=== PATIENT | female | born 1965 | race Caucasian/White ===

== ENCOUNTER 2016-12-08 23:08 | Emergency (ER) | payer OTHER ==
--- NOTE | 2016-12-09 00:16 | ED CLINICAL REPORT ---
Clinical Report - Physicians/Mid Levels [facility] [address] [place] [address] 12/08/2016 23:08 [id number] Time Seen: 23:24. Arrived- By private vehicle. Historian- patient. HISTORY OF PRESENT ILLNESS Chief Complaint: Injury to the left foot and left ankle. The injury happened just prior to arrival. The patient sustained a twisting injury. Occurred at home. Patient is experiencing moderate pain. No other injury. REVIEW OF SYSTEMS The patient complains of pain on weight bearing. She has had swelling. No tingling, weakness, numbness, suspected foreign body or skin laceration. All systems otherwise negative, except as recorded above. PAST HISTORY Problems: Allergic Reaction. Allergic Rhinitis. Immunizations. LNMP - Last Normal Menstrual Period. Additional Surgeries: Yehuda Fundoplasty. Sinus Surgery. Tubal Ligation. Medications: None. Allergies: No Known Drug Allergy. SOCIAL HISTORY Never smoker. Alcohol use. No drug use. ADDITIONAL NOTES The nursing notes have been reviewed. PHYSICAL EXAM Vital Signs: 12/08/2016 23:12 BP: 145/84. HR: 80. RR: 18. O2 saturation: 98%. Temp: 98.2 F. Pain level now: 6/10. Have been reviewed. Appearance: Alert. Oriented X3. No acute distress. Head: Head atraumatic. Eyes: Eyes normal inspection. ENT: Nose normal. Neck: No decreased ROM in the neck. CVS: Pulses normal. Respiratory: No respiratory distress. Back: ROM normal. Skin: Skin intact. Skin warm and dry. Extremities: Left ankle: moderate tenderness and swelling localized to the. Limited ROM secondary to pain (diminished plantar flexion and dorsiflexion). Neurovascular intact distally. (posterolateral ankle). No ligamentous laxity present. No joint effusion. No erythema, laceration, abrasion, ecchymosis or puncture wound. No foreign body or deformity. Left foot: moderate tenderness, mild swelling and small ecchymosis of the proximal dorsal medial aspect of the foot. Limited weight bearing secondary to pain. Neurovascular intact distally. No erythema, laceration, abrasion, puncture wound or foreign body. No deformity. Foot and ankle exam otherwise negative. Extremities otherwise negative. Gait: Gait not tested due to pain. Neuro, Vascular and Tendons: Vascular status intact. Sensation intact. Motor intact. Tendon function intact. Neuro: No motor deficit. No sensory deficit. (Grossly oriented.). LABS, X-RAYS, AND EKG Lt Ankle X-ray: Soft tissues normal. Joint spaces normal. No air in the soft tissue or foreign body. Fracture of the distal left fibula. No open, comminuted or intraarticular fracture of the left fibula. Views: 3 view ankle series. Technique: good. The X-rays were independently viewed by me, interpreted by the radiologist and contemporaneously by me and discussed with the radiologist. Prior films were not available for comparison. Lt Foot X-ray: Soft tissues normal. Joint spaces abnormal. No air in the soft tissue or foreign body. (Pt has a tiny avulsion fx of the proximal 1st metatarsal, as well as a widened Lisfranc joint.). Views: 3 view foot series. Technique: good. The X-rays were independently viewed by me and interpreted contemporaneously by me. Prior films were not available for comparison. Pulse Oximetry: 12/08/2016 23:12 O2 saturation: 98%. (FIO2 - room air). Interpretation: normal. PROGRESS AND PROCEDURES Splint Application: Posterior stirrup fiberglass splint applied to left foot, ankle and lower leg. Splint applied by [facility] with direct supervision by me and the ED physician. Reassessed extremity following splint application. Neurovascular intact. Course of Care: I did d/w pt that her foot x-ray is concerning for a Lisfranc injury (though the radiology interpretation will not be done until morning). I have advised her of the importance of follow-up for this with a infrastructure technician, to avoid long-term complications. Pt expresses understanding. She has been given Percocet, as well as crutches and a splint in the ED. Patient counseled in person regarding the patient's stable condition, test results and diagnosis. Old medical records reviewed. Disposition: Discharged. Condition: stable and improved. CLINICAL IMPRESSION Closed nondisplaced spiral fracture of the lateral malleolus of the left fibula. No angulated fracture of the fibula. Closed nondisplaced fracture of the first metatarsal (Possible Lisfranc injury.). No angulated fracture of the foot. INSTRUCTIONS Apply ice as needed and until better. Don't apply ice directly to skin and don't use while asleep. No weight bearing. Do not work for one day (December 09). (Your x-ray shows a fracture of your fibula (smaller of the two lower leg bones), but also shows evidence that the ligament holding your 1st and 2nd metatarsals (foot bones) together has torn, pulling a little of the bone off with it. This is concerning, because over time, it can cause instability of the foot and chronic pain and problems with walking. It is very important that you follow up with the infrastructure technician, as instructed, to be further evaluated for this. Please wear the splint until cleared by the infrastructure technician, and do not bear weight.). Warnings: SEDATIVE MEDICATION: You were given sedative medication during your visit. Do not drive or operate dangerous machinery for 6 hours. GENERAL WARNINGS: Return or contact your physician immediately if your condition worsens or changes unexpectedly, if not improving as expected, or if other problems arise. Prescription Medications: Hydrocodone/APAP 5mg / 325mg: take 1-2 orally every 4 hours as needed for pain. Dispense thirty (30). No refill. Zofran (orally disintegrating tablets) 4 mg: take 1-2 orally every 6 hours as needed for nausea. Dispense twenty (20). No refill. Substitution is permissible. Ibuprofen 800 mg tablets: take 1 tablet orally every 8 hours as needed for pain. Dispense thirty (30). No refill. Understanding of the discharge instructions verbalized by patient. Follow-up with: Rob Moore DPM, Podiatry, , [facility], [address] [place] [address], [address], [place] [address] Follow up tomorrow. Call for the next available appointment. Reason for referral: Follow up possible Lisfranc injury. (Electronically signed by Monica Evans MD 12/16/2016 9:44) Addenda for VASILIY VALDERRAMA I VisitID: [id number] Date: 12/08/2016 12/09/2016 0:52 short posterior splint to the left ankle/leg. PT had good CMS and was fitted for new crutches. (Electronically signed by Ally Lees - 12/09/2016 0:52)
--- NOTE | 2016-12-09 00:16 | ED NURSING NOTES ---
Clinical Report - Nurses [facility] [address] [place] [address] 12/08/2016 23:08 Patient: VASILIY VALDERRAMA I TRIAGE Triage time 23:13. Acuity: LEVEL 3. Chief Complaint: INJURY TO LEFT ANKLE and LEFT FOOT. Alert. EDGAR COMA SCORE: [place] Coma Scale: 15- eyes open spontaneously (4); best verbal response- oriented x 4 (5); best motor response- obeys commands (6). --23:19 Leonardo Morales R.N. 23:12 12/08/16. BP: 145/84. HR: 80. RR: 18 (regular and unlabored). O2 saturation: 98% on room air. Temp: 98.2 F (oral). Pain level now: 02/18. --23:19 Leonardo Morales R.N. <<STRICKEN ENTRY-- Weight: 4.5 kg stated. Height/Length: 65 inches Per Patient. BMI: 1.7. --END STRIKE>> Correction --23:12 Leonardo Morales R.N.. Weight: 95.2 kg stated. Height/Length: 65 inches Per Patient. BMI: 35. --23:14 Leonardo Morales R.N. Medications None. --23:16 Leonardo Morales R.N. Allergies No Known Drug Allergy. --23:16 Leonardo Morales R.N. History Arrived by private vehicle. Historian: patient. Accompanied by family. ( accidently missed the bottom step on her stairs "and all I heard was a pop". denies other injuries, denies head injury). She has had trouble walking. No numbness or tingling. SOCIAL HX: Never smoker. Regular alcohol use. No drug use. NUTRITIONAL RISK ASSESSMENT: The nutritional risk assessment revealed no deficiencies. LEARNING NEEDS ASSESSMENT: The learning needs assessment revealed no barriers. --23:19 Leonardo Morales R.N. PROBLEMS: Allergic Reaction. Allergic Rhinitis. Immunizations. --23:17 Leonardo Morales R.N. ADDITIONAL SURGERIES: Yehuda Fundoplasty. Sinus Surgery. Tubal Ligation. --23:17 Leonardo Morales R.N. Interventions ID band on patient. To treatment room. --23:19 Leonardo Morales R.N. PHYSICAL ASSESSMENT GENERAL / NEURO / PSYCH: ( no broken skin observed, left ankle pain with). EXTREMITIES: Left ankle: tenderness and swelling. Left foot: tenderness and swelling. --23:21 Leonardo Morales R.N. NURSING PROGRESS NOTES Reassurance given. Two patient identifiers checked. Call light placed in reach. Side rails up x 1. Bed placed in lowest position. Brakes of bed on. Patient ready for evaluation- chart flagged. Patient waiting for evaluation. --23:20 Leonardo Morales R.N. 00:08 12/09/2016 Oxycodone-APAP (Oxycodone-Acetaminophen) PO 5/325 mg Tablets 1 tab given. Allergies verified, confirmed 5 rights and sedative warning given to the patient. --00:13 Leonardo Morales R.N. ( Doctor Monica discussion disposition with patient. [facility] Sammie applying splint to left ankle of patient.). --00:23 Leonardo Morales R.N. ( patient departed after receiving crutches and crutch-walking instructions). --00:48 Leonardo Morales R.N. DISPOSITION / DISCHARGE Condition at departure: stable. No learning barriers present. Discharge instructions provided and reviewed with the family. Reviewed warnings. Reviewed medication(s) side effects, precautions, dosing and course information. Prescription(s) given to the patient. Treatments reviewed. Reviewed referrals for followup. Patient and family verbalized understanding. Written instructions provided in Frisian. The patient was discharged home and accompanied by family. She left the Emergency Department in a wheelchair on crutches and via private vehicle. Family member driving. --00:34 Leonardo Morales R.N. 00:32 12/09/16. BP: 121/66. HR: 77. RR: 18. O2 saturation: 94%. Pain level now: 11/18. --00:34 Leonardo Morales R.N. Locked/Released at 12/09/2016 0:48 by Leonardo Morales R.N.
--- NOTE | 2016-12-09 00:16 | ED ORDER SUMMARY ---
..... Patient: VASILIY VALDERRAMA I OrderSheet [facility] VisitID: [id number] [place] [address] 51y, F Registration Date/Time: 12/08/2016 ORDER SHEET Weight: 95.2 kg (stated) Allergies: No Known Drug Allergy GENERAL ORDERS: Ankle 3 or 4V Left Urgent (23:26 12/08/2016 Anton JUAREZ) (Ack 23:29 SBaldkyle) (23:37 LMuller) Foot 3V Left Urgent (23:26 12/08/2016 Anton JUAREZ) (Ack 23:29 Brennen) (23:37 LMuller) Splint (LE) (Left) (Short Leg Posterior) (Fiberglass) (00:10 12/09/2016 Anton JUAREZ) (0:20 DDavis R.N.) Crutches (00:10 12/09/2016 Anton JUAREZ) (0:20 DDavis R.N.) MEDICATION ORDERS: Oxycodone-APAP PO 5/325 mg (HIGH ALERT MEDICATION, NOW) (23:58 12/08/2016 DDavis R.N. verbal order read back to Anton JUAREZ) (0:13 DDavis R.N.) IV FLUIDS: ORDER SHEET NOTES: [Electronically signed by Leonardo Morales R.N. (00:48 12/09/2016)] [Electronically signed by Monica Evans MD (09:44 12/16/2016)] [Electronically locked/signed by Leonardo Morales R.N. (00:48 12/09/2016)]
--- NOTE | 2016-12-09 00:16 | ED CLINICAL REPORT ---
Clinical Report - Physicians/Mid Levels [facility] [address] [place] [address] 12/08/2016 23:08 [id number] Time Seen: 23:24. Arrived- By private vehicle. Historian- patient. HISTORY OF PRESENT ILLNESS Chief Complaint: Injury to the left foot and left ankle. The injury happened just prior to arrival. The patient sustained a twisting injury. Occurred at home. Patient is experiencing moderate pain. No other injury. REVIEW OF SYSTEMS The patient complains of pain on weight bearing. She has had swelling. No tingling, weakness, numbness, suspected foreign body or skin laceration. All systems otherwise negative, except as recorded above. PAST HISTORY Problems: Allergic Reaction. Allergic Rhinitis. Immunizations. LNMP - Last Normal Menstrual Period. Additional Surgeries: Yehuda Fundoplasty. Sinus Surgery. Tubal Ligation. Medications: None. Allergies: No Known Drug Allergy. SOCIAL HISTORY Never smoker. Alcohol use. No drug use. ADDITIONAL NOTES The nursing notes have been reviewed. PHYSICAL EXAM Vital Signs: 12/08/2016 23:12 BP: 145/84. HR: 80. RR: 18. O2 saturation: 98%. Temp: 98.2 F. Pain level now: 6/10. Have been reviewed. Appearance: Alert. Oriented X3. No acute distress. Head: Head atraumatic. Eyes: Eyes normal inspection. ENT: Nose normal. Neck: No decreased ROM in the neck. CVS: Pulses normal. Respiratory: No respiratory distress. Back: ROM normal. Skin: Skin intact. Skin warm and dry. Extremities: Left ankle: moderate tenderness and swelling localized to the. Limited ROM secondary to pain (diminished plantar flexion and dorsiflexion). Neurovascular intact distally. (posterolateral ankle). No ligamentous laxity present. No joint effusion. No erythema, laceration, abrasion, ecchymosis or puncture wound. No foreign body or deformity. Left foot: moderate tenderness, mild swelling and small ecchymosis of the proximal dorsal medial aspect of the foot. Limited weight bearing secondary to pain. Neurovascular intact distally. No erythema, laceration, abrasion, puncture wound or foreign body. No deformity. Foot and ankle exam otherwise negative. Extremities otherwise negative. Gait: Gait not tested due to pain. Neuro, Vascular and Tendons: Vascular status intact. Sensation intact. Motor intact. Tendon function intact. Neuro: No motor deficit. No sensory deficit. (Grossly oriented.). LABS, X-RAYS, AND EKG Lt Ankle X-ray: Soft tissues normal. Joint spaces normal. No air in the soft tissue or foreign body. Fracture of the distal left fibula. No open, comminuted or intraarticular fracture of the left fibula. Views: 3 view ankle series. Technique: good. The X-rays were independently viewed by me, interpreted by the radiologist and contemporaneously by me and discussed with the radiologist. Prior films were not available for comparison. Lt Foot X-ray: Soft tissues normal. Joint spaces abnormal. No air in the soft tissue or foreign body. (Pt has a tiny avulsion fx of the proximal 1st metatarsal, as well as a widened Lisfranc joint.). Views: 3 view foot series. Technique: good. The X-rays were independently viewed by me and interpreted contemporaneously by me. Prior films were not available for comparison. Pulse Oximetry: 12/08/2016 23:12 O2 saturation: 98%. (FIO2 - room air). Interpretation: normal. PROGRESS AND PROCEDURES Splint Application: Posterior stirrup fiberglass splint applied to left foot, ankle and lower leg. Splint applied by [facility] with direct supervision by me and the ED physician. Reassessed extremity following splint application. Neurovascular intact. Course of Care: I did d/w pt that her foot x-ray is concerning for a Lisfranc injury (though the radiology interpretation will not be done until morning). I have advised her of the importance of follow-up for this with a crime scene specialist, to avoid long-term complications. Pt expresses understanding. She has been given Percocet, as well as crutches and a splint in the ED. Patient counseled in person regarding the patient's stable condition, test results and diagnosis. Old medical records reviewed. Disposition: Discharged. Condition: stable and improved. CLINICAL IMPRESSION Closed nondisplaced spiral fracture of the lateral malleolus of the left fibula. No angulated fracture of the fibula. Closed nondisplaced fracture of the first metatarsal (Possible Lisfranc injury.). No angulated fracture of the foot. INSTRUCTIONS Apply ice as needed and until better. Don't apply ice directly to skin and don't use while asleep. No weight bearing. Do not work for one day (December 09). (Your x-ray shows a fracture of your fibula (smaller of the two lower leg bones), but also shows evidence that the ligament holding your 1st and 2nd metatarsals (foot bones) together has torn, pulling a little of the bone off with it. This is concerning, because over time, it can cause instability of the foot and chronic pain and problems with walking. It is very important that you follow up with the crime scene specialist, as instructed, to be further evaluated for this. Please wear the splint until cleared by the crime scene specialist, and do not bear weight.). Warnings: SEDATIVE MEDICATION: You were given sedative medication during your visit. Do not drive or operate dangerous machinery for 6 hours. GENERAL WARNINGS: Return or contact your physician immediately if your condition worsens or changes unexpectedly, if not improving as expected, or if other problems arise. Prescription Medications: Hydrocodone/APAP 5mg / 325mg: take 1-2 orally every 4 hours as needed for pain. Dispense thirty (30). No refill. Zofran (orally disintegrating tablets) 4 mg: take 1-2 orally every 6 hours as needed for nausea. Dispense twenty (20). No refill. Substitution is permissible. Ibuprofen 800 mg tablets: take 1 tablet orally every 8 hours as needed for pain. Dispense thirty (30). No refill. Understanding of the discharge instructions verbalized by patient. Follow-up with: Rob Moore DPM, Podiatry, , [facility], [address] [place] [address], [address], [place] [address] Follow up tomorrow. Call for the next available appointment. Reason for referral: Follow up possible Lisfranc injury. (Electronically signed by Monica Evans MD 12/16/2016 9:44) Addenda for VASILIY VALDERRAMA I VisitID: [id number] Date: 12/08/2016 12/09/2016 0:52 short posterior splint to the left ankle/leg. PT had good CMS and was fitted for new crutches. (Electronically signed by Ally Lees - 12/09/2016 0:52)
--- NOTE | 2016-12-09 00:16 | ED ORDER SUMMARY ---
..... Patient: VASILIY VALDERRAMA I OrderSheet [facility] VisitID: [id number] [place] [address] 51y, F Registration Date/Time: 12/08/2016 ORDER SHEET Weight: 95.2 kg (stated) Allergies: No Known Drug Allergy GENERAL ORDERS: Ankle 3 or 4V Left Urgent (23:26 12/08/2016 Anton JUAREZ) (Ack 23:29 SBaldkyle) (23:37 LMuller) Foot 3V Left Urgent (23:26 12/08/2016 Anton JUAREZ) (Ack 23:29 Brennen) (23:37 LMuller) Splint (LE) (Left) (Short Leg Posterior) (Fiberglass) (00:10 12/09/2016 Anton JUAREZ) (0:20 DDavis R.N.) Crutches (00:10 12/09/2016 Anton JUAREZ) (0:20 DDavis R.N.) MEDICATION ORDERS: Oxycodone-APAP PO 5/325 mg (HIGH ALERT MEDICATION, NOW) (23:58 12/08/2016 DDavis R.N. verbal order read back to Anton JUAREZ) (0:13 DDavis R.N.) IV FLUIDS: ORDER SHEET NOTES: [Electronically signed by Leonardo Morales R.N. (00:48 12/09/2016)] [Electronically signed by Monica Evans MD (09:44 12/16/2016)] [Electronically locked/signed by Leonardo Morales R.N. (00:48 12/09/2016)]
--- NOTE | 2016-12-09 06:16 | DIAGNOSTIC IMAGING REPORT ---
PROCEDURE: XR ANKLE 3 OR 4 VIEWS - LEFT INDICATION: TRAUMA/INJURY TECHNIQUE: Four views. COMPARISON: None. FINDINGS: Oblique fracture of the distal fibula with minimal displacement. Mild widening of the ankle mortise medially. Small plantar calcaneal spur. There is mild soft tissue swelling laterally. IMPRESSION: 1. Oblique fracture of the distal left fibula with minimal displacement
--- NOTE | 2016-12-09 06:20 | DIAGNOSTIC IMAGING REPORT ---
PROCEDURE: XR FOOT 3 VIEWS - LEFT INDICATION: TRAUMA/INJURY TECHNIQUE: Three views. COMPARISON: None. FINDINGS: There are two tiny bone fragments between the bases of the first and second metatarsals and an additional 5 mm smoothly marginated soft tissue calcification with some widening of the space between the first and second metatarsals. Findings are suspicious for Lisfranc injury, acute versus subacute. There is also an oblique fracture of the distal fibula with minimal displacement. Small plantar calcaneal spur. IMPRESSION: 1. Bone fragments between the bases of the first and second metatarsals with some widening suspicious for Lisfranc injury which may be acute or subacute. Correlate clinically 2. Fracture of the distal fibula with minimal displacement.
[2016-12-15] MEDS ORDERED: IBUPROFEN600 MG PO (12:32)
[2016-12-15] MEDS ORDERED: FLONASE AL50 MCG/ACT (12:33)
[2016-12-15] MEDS ORDERED: CLOBETASOL 0.05% (12:34)
--- NOTE | 2016-12-16 09:45 | ED MED RECONCILIATION SUMMARY ---
Patient: VASILIY VALDERRAMA I Medication Reconciliation Report [facility] VisitID: [id number] [place] [address] 51y, F Registration Date/Time: 12/08/2016 Weight: 95.2 kg Height/Length: 65 in. BMI: 35.0 ALLERGIES: No Known Drug Allergy The patient's Home Medications are listed below: NONE. The source(s) of the original Home Medication information: Not obtained. The following Medications were given to the patient in the Emergency Department: Oxycodone-APAP [PO] PO 1 tab, administered: 12/09/2016 12:08:00 AM The following Medications were prescribed to the patient: Hydrocodone/APAP 5mg / 325mg: take 1-2 orally every 4 hours as needed for pain. Dispense thirty (30). No refill. -- Monica Evans MD Zofran (orally disintegrating tablets) 4 mg: take 1-2 orally every 6 hours as needed for nausea. Dispense twenty (20). No refill. Substitution is permissible. -- Monica Evans MD Ibuprofen 800 mg tablets: take 1 tablet orally every 8 hours as needed for pain. Dispense thirty (30). No refill. -- Monica Evans MD
--- NOTE | 2016-12-16 09:45 | ED DISCHARGE INSTRUCTIONS ---
Patient: VASILIY VALDERRAMA I General Instructions [facility] VisitID: [id number] [place] [address] 51y, F Registration Date/Time: 12/08/2016 Closed nondisplaced spiral fracture of the lateral malleolus of the left fibula. No angulated fracture of the fibula. Closed nondisplaced fracture of the first metatarsal (Possible Lisfranc injury.). No angulated fracture of the foot. INSTRUCTIONS Apply ice as needed and until better. Don't apply ice directly to skin and don't use while asleep. No weight bearing. Do not work for one day (December 09). (Your x-ray shows a fracture of your fibula (smaller of the two lower leg bones), but also shows evidence that the ligament holding your 1st and 2nd metatarsals (foot bones) together has torn, pulling a little of the bone off with it. This is concerning, because over time, it can cause instability of the foot and chronic pain and problems with walking. It is very important that you follow up with the utility tractor operator, as instructed, to be further evaluated for this. Please wear the splint until cleared by the utility tractor operator, and do not bear weight.). Warnings: SEDATIVE MEDICATION: You were given sedative medication during your visit. Do not drive or operate dangerous machinery for 6 hours. GENERAL WARNINGS: Return or contact your physician immediately if your condition worsens or changes unexpectedly, if not improving as expected, or if other problems arise. Prescription Medications: Hydrocodone/APAP 5mg / 325mg: take 1-2 orally every 4 hours as needed for pain. Dispense thirty (30). No refill. Zofran (orally disintegrating tablets) 4 mg: take 1-2 orally every 6 hours as needed for nausea. Dispense twenty (20). No refill. Substitution is permissible. Ibuprofen 800 mg tablets: take 1 tablet orally every 8 hours as needed for pain. Dispense thirty (30). No refill. Understanding of the discharge instructions verbalized by patient. Follow-up with: Rob Moore DPM, Podiatry, , [facility], [address] [place] [address], [address], [facility] [id number] Follow up tomorrow. Call for the next available appointment. Reason for referral: Follow up possible Lisfranc injury. ADDITIONAL INFORMATION Fracture:Ankle You have a break (fracture) of the ankle. This causes local pain, swelling and sometimes bruising. A fracture is treated with a splint or cast or special boot. It will take about 4-6 weeks for the fracture to heal. Surgery may be needed to fix severe injuries. Home Care: You will be given a splint, cast or boot to prevent movement at the ankle joint. Unless you were told otherwise, use crutches or a walker and do not bear weight on the injured leg until cleared by your doctor to do so. (Crutches and walkers can be rented at many pharmacies and surgical/orthopedic supply stores). Do not put weight on a splint; it will break. Keep your leg elevated to reduce pain and swelling. When sleeping, place a pillow under the injured leg. When sitting, support the injured leg so it is level with your waist. This is very important during the first 48 hours. Apply an ice pack (ice cubes in a plastic bag, wrapped in a towel) over the injured area for 20 minutes every 1-2 hours the first day. You can place the ice pack directly over the splint/cast. Continue with ice packs 3-4 times a day for the next two days, then as needed for the relief of pain and swelling. Keep the cast/splint/boot completely dry at all times. Bathe with your cast/splint/boot out of the water, protected with a large plastic bag, rubber-banded at the top end. If a boot or fiberglass cast/splint gets wet, you can dry it with a hair-dryer. You may use acetaminophen (Tylenol) or ibuprofen (Motrin, Advil) to control pain, unless another pain medicine was prescribed. [ NOTE : If you have chronic liver or kidney disease or ever had a stomach ulcer or GI bleeding, talk with your doctor before using these medicines.] Follow Up with your doctor in one week, or as advised by our staff, to be sure the bone is healing properly. If you were given a splint, it may be changed to a cast at your follow-up visit. [NOTE: A radiologist will review any X-rays that were taken. We will notify you of any new findings that may affect your care.] Get Prompt Medical Attention If Any Of The Following Occur: The plaster cast or splint becomes wet or soft The fiberglass cast or splint remains wet for more than 24 hours Increased tightness or pain under the cast or splint Toes become swollen, cold, blue, numb or tingly You have been given the following additional information: Fracture, Ankle (General) No weight bearing. Do not work for one day (December 09). (Electronically signed by Monica Evans MD 12/16/2016 9:44)
--- NOTE | 2016-12-16 09:45 | ED DISCHARGE INSTRUCTIONS ---
Patient: VASILIY VALDERRAMA I General Instructions [facility] VisitID: [id number] [place] [address] 51y, F Registration Date/Time: 12/08/2016 Closed nondisplaced spiral fracture of the lateral malleolus of the left fibula. No angulated fracture of the fibula. Closed nondisplaced fracture of the first metatarsal (Possible Lisfranc injury.). No angulated fracture of the foot. INSTRUCTIONS Apply ice as needed and until better. Don't apply ice directly to skin and don't use while asleep. No weight bearing. Do not work for one day (December 09). (Your x-ray shows a fracture of your fibula (smaller of the two lower leg bones), but also shows evidence that the ligament holding your 1st and 2nd metatarsals (foot bones) together has torn, pulling a little of the bone off with it. This is concerning, because over time, it can cause instability of the foot and chronic pain and problems with walking. It is very important that you follow up with the directory carrier, as instructed, to be further evaluated for this. Please wear the splint until cleared by the directory carrier, and do not bear weight.). Warnings: SEDATIVE MEDICATION: You were given sedative medication during your visit. Do not drive or operate dangerous machinery for 6 hours. GENERAL WARNINGS: Return or contact your physician immediately if your condition worsens or changes unexpectedly, if not improving as expected, or if other problems arise. Prescription Medications: Hydrocodone/APAP 5mg / 325mg: take 1-2 orally every 4 hours as needed for pain. Dispense thirty (30). No refill. Zofran (orally disintegrating tablets) 4 mg: take 1-2 orally every 6 hours as needed for nausea. Dispense twenty (20). No refill. Substitution is permissible. Ibuprofen 800 mg tablets: take 1 tablet orally every 8 hours as needed for pain. Dispense thirty (30). No refill. Understanding of the discharge instructions verbalized by patient. Follow-up with: Rob Moore DPM, Podiatry, , [facility], [address] [place] [address], [address], [facility] [address] Follow up tomorrow. Call for the next available appointment. Reason for referral: Follow up possible Lisfranc injury. ADDITIONAL INFORMATION Fracture:Ankle You have a break (fracture) of the ankle. This causes local pain, swelling and sometimes bruising. A fracture is treated with a splint or cast or special boot. It will take about 4-6 weeks for the fracture to heal. Surgery may be needed to fix severe injuries. Home Care: You will be given a splint, cast or boot to prevent movement at the ankle joint. Unless you were told otherwise, use crutches or a walker and do not bear weight on the injured leg until cleared by your doctor to do so. (Crutches and walkers can be rented at many pharmacies and surgical/orthopedic supply stores). Do not put weight on a splint; it will break. Keep your leg elevated to reduce pain and swelling. When sleeping, place a pillow under the injured leg. When sitting, support the injured leg so it is level with your waist. This is very important during the first 48 hours. Apply an ice pack (ice cubes in a plastic bag, wrapped in a towel) over the injured area for 20 minutes every 1-2 hours the first day. You can place the ice pack directly over the splint/cast. Continue with ice packs 3-4 times a day for the next two days, then as needed for the relief of pain and swelling. Keep the cast/splint/boot completely dry at all times. Bathe with your cast/splint/boot out of the water, protected with a large plastic bag, rubber-banded at the top end. If a boot or fiberglass cast/splint gets wet, you can dry it with a hair-dryer. You may use acetaminophen (Tylenol) or ibuprofen (Motrin, Advil) to control pain, unless another pain medicine was prescribed. [ NOTE : If you have chronic liver or kidney disease or ever had a stomach ulcer or GI bleeding, talk with your doctor before using these medicines.] Follow Up with your doctor in one week, or as advised by our staff, to be sure the bone is healing properly. If you were given a splint, it may be changed to a cast at your follow-up visit. [NOTE: A radiologist will review any X-rays that were taken. We will notify you of any new findings that may affect your care.] Get Prompt Medical Attention If Any Of The Following Occur: The plaster cast or splint becomes wet or soft The fiberglass cast or splint remains wet for more than 24 hours Increased tightness or pain under the cast or splint Toes become swollen, cold, blue, numb or tingly You have been given the following additional information: Fracture, Ankle (General) No weight bearing. Do not work for one day (December 09). (Electronically signed by Monica Evans MD 12/16/2016 9:44)
--- NOTE | 2016-12-16 09:45 | ED MAR SUMMARY ---
..... Medication Administration Record [facility] [address] [place] [address] Patient: VASILIY VALDERRAMA I Visit ID: [id number] 51y, F Weight: 95.2 kg Height/Length: 65 in BMI: 35 ALLERGIES: No Known Drug Allergy Given 00:08 12/09/2016 Leonardo Morales R.N. Medication Administered: OXYCODONE-APAP [PO] (OXYCODONE-ACETAMINOPHEN), Dose: 1 tab 5/325 mg Tablets PO. Medication Ordered: Oxycodone-APAP PO 5/325 mg (HIGH ALERT MEDICATION, NOW).
--- NOTE | 2016-12-16 09:45 | ED MED RECONCILIATION SUMMARY ---
Patient: VASILIY VALDERRAMA I Medication Reconciliation Report [facility] VisitID: [id number] [place] [address] 51y, F Registration Date/Time: 12/08/2016 Weight: 95.2 kg Height/Length: 65 in. BMI: 35.0 ALLERGIES: No Known Drug Allergy The patient's Home Medications are listed below: NONE. The source(s) of the original Home Medication information: Not obtained. The following Medications were given to the patient in the Emergency Department: Oxycodone-APAP [PO] PO 1 tab, administered: 12/09/2016 12:08:00 AM The following Medications were prescribed to the patient: Hydrocodone/APAP 5mg / 325mg: take 1-2 orally every 4 hours as needed for pain. Dispense thirty (30). No refill. -- Monica Evans MD Zofran (orally disintegrating tablets) 4 mg: take 1-2 orally every 6 hours as needed for nausea. Dispense twenty (20). No refill. Substitution is permissible. -- Monica Evans MD Ibuprofen 800 mg tablets: take 1 tablet orally every 8 hours as needed for pain. Dispense thirty (30). No refill. -- Monica Evans MD
--- NOTE | 2016-12-16 09:45 | ED MAR SUMMARY ---
..... Medication Administration Record [facility] [address] [place] [address] Patient: VASILIY VALDERRAMA I Visit ID: [id number] 51y, F Weight: 95.2 kg Height/Length: 65 in BMI: 35 ALLERGIES: No Known Drug Allergy Given 00:08 12/09/2016 Leonardo Morales R.N. Medication Administered: OXYCODONE-APAP [PO] (OXYCODONE-ACETAMINOPHEN), Dose: 1 tab 5/325 mg Tablets PO. Medication Ordered: Oxycodone-APAP PO 5/325 mg (HIGH ALERT MEDICATION, NOW).
== END 2016-12-09 00:40 | disposition home or self-care (01) ==
LOC: ED SRH 23:08
DX: S82.65XA Nondisplaced fracture of lateral malleolus of left fibula, initial encounter for closed fracture (principal); S92.315A Nondisplaced fracture of first metatarsal bone, left foot, initial encounter for closed fracture; X50.0XXA Overexertion from strenuous movement or load, initial encounter; Y93.89 Activity, other specified; Y92.009 Unspecified place in unspecified non-institutional (private) residence as the place of occurrence of the external cause; Y99.9 Unspecified external cause status

== ENCOUNTER 2016-12-16 06:12 | Day surgery (SDC) | payer OTHER ==
--- NOTE | 2016-12-15 09:20 | HISTORY AND PHYSICAL ---
ADMITTED: 12/16/2016 HISTORY OF PRESENT ILLNESS: The patient is a 51-year-old female who, on 2016, was coming down some stairs, missed some steps and sustained a significant injury to her left ankle and foot. She went to [facility] emergency department and was worked up with x-rays, which revealed a minimally displaced spiral fracture of the distal fibula as well as a possible Lisfranc displacement and fracture of the first metatarsal and base of the second. She has been placed in a splint and was followed up by myself, seen in my office on 12/12/2016. MEDICAL/SURGICAL HISTORY: Essentially noncontributory. She has allergic rhinitis essentially. Surgical history of a tubal ligation, sinus, esophagus. PRIMARY CARE PROVIDER: Carie Carlson MD MEDICATIONS: 1. Ibuprofen 800 mg 1 by mouth every 8 hours. 2. Zofran 4 mg 1 by mouth q.6 hours for nausea. 3. Hydrocodone 5/325, one q.6 p.r.n. pain. ALLERGIES: 1. NO REPORTED ALLERGIES TO MEDICATIONS. 2. SHE HAS SOME SENSITIVITY TO SALAZAR PEPPERS. SOCIAL HISTORY: She is employed full-time with [employer]. She is , a former smoker, drinks socially. FAMILY HISTORY: Arthritis and depression. REVIEW OF SYSTEMS: A 10-point review of system reveals some leg swelling, otherwise noncontributory. PHYSICAL EXAMINATION: GENERAL: The patient is alert, oriented x3. HEAD AND NECK: PERRLA. Normocephalic. HEART: Regular rate and rhythm. Regular S1, S2. No murmurs or gallops. LUNGS: Clear to auscultation. No wheezing, rhonchi, or rales. ABDOMEN: Soft, nontender, nondistended. No palpable masses. Normal tones. LOWER EXTREMITIES: Vascular: DP and PT pulses are palpable, with +2/4. There is noted ecchymosis, both on the dorsum of the left foot, plantar mid arch as well as the distal fibula. No breaks in the skin. Very guarded and limited range of motion secondary to the swelling and pain. LAB/IMAGING: Pulled up the images at [facility] revealed, and concur with a minimal displacement of a distal oblique fracture of the fibula, as well as a suspicious Lisfranc injury. In the office today, we did do films on an OrthoScan weightbearing platform bilaterally, which revealed significant displacement of the Lisfranc joint and bone fragments in the base of the second and first metatarsal. IMPRESSION: 1. Lisfranc subluxation. 2. Fractures of the base of the second and first metatarsal 3. Minimally displaced distal fibular fracture. PLAN: The patient has consented for an ORIF of a Lisfranc subluxation and ORIF of a second metatarsal fracture. She is well aware of the planned procedure and convalescent period associated with it. There are no contraindications to surgery, scheduled on an outpatient basis at [facility] on 12/16/2016.
[~2016-12-16] VITALS: Ht 165.1 cm; Wt 95.3 kg
[~2016-12-16 06:12] MED LIST: CLOBETASOL 0.05%; FLONASE AL50 MCG/ACT; IBUPROFEN600 MG PO
[2016-12-16] MEDS ORDERED: SENOKOT8.6 MG PO (09:06)
--- NOTE | 2016-12-16 09:07 | Provider's Discharge Care Plan ---
Problem, Goal, Plan Problem List 1. Dislocation of tarsometatarsal joint of left foot, subsequent encounter Goals: Improve function Instructions: Follow up as directed
--- NOTE | 2016-12-16 09:07 | Provider's Discharge Care Plan ---
Problem, Goal, Plan Problem List 1. Dislocation of tarsometatarsal joint of left foot, subsequent encounter Goals: Improve function Instructions: Follow up as directed
--- NOTE | 2016-12-16 10:05 | OPERATIVE REPORT ---
DATE OF SURGERY: 12/16/2016 SURGEON: Rob Moore DPM PREOPERATIVE DIAGNOSES: 1. Subluxation fracture, Lisfranc joint 2. Minimal displacement, second metatarsal fracture, left foot POSTOPERATIVE DIAGNOSES: 1. Subluxation fracture, Lisfranc joint. 2. Minimal displacement, second metatarsal fracture, left foot PROCEDURES PERFORMED: 1. Open reduction and internal fixation, Lisfranc subluxation. 2. Open reduction and internal fixation, second metatarsal base fracture. HEMOSTASIS: Achieved by pneumatic tourniquet at the calf level inflated to 250 mmHg pressure. TOURNIQUET TIME: Total tourniquet time 55 minutes. MATERIALS: Used 3-0 and 4-0 Polysorb, 4-0 Surgipro and one 4.0, 34 mm headless compression screw by Arthrex. INJECTABLES: Injected 20 mL of 0.5% bupivacaine plain. COMPLICATIONS: None. CONDITION: The patient tolerated anesthesia and procedure well. INDICATIONS: The patient is a 51-year-old female who on 12/11/2016 she took a misstep and ended up in the emergency department. Imaging at [facility] revealed a minimally displaced fibular fracture and a Lisfranc subluxation and metatarsal base fracture. She was placed in a Guy compression cast and seen in my office on Monday. Additional x-rays taken contralaterally confirmed the subluxation fracture of the Lisfranc joint. She is well aware of the planned procedure. There are no necessity for open reduction and internal fixation of the fibula. In my opinion, it is lined up nicely. We are going to perform an open reduction and internal fixation of the Lisfranc joint and articulation as well as an open reduction and internal fixation of the associated metatarsal base fracture. No contraindications to surgery at this time. SURGICAL TECHNIQUE: The patient was brought to the operating room and placed on the table in the supine position. A general anesthetic was administered. A pneumatic tourniquet was then placed above the left ankle at mid calf level. The left lower extremity was prepped and draped in normal sterile fashion as well as the identification of preoperative antibiotic being delivered. An intraoperative pause was carried out at this time with positive identification of proper limb, consent form verified and confirmed. Esmarch bandage was then utilized to exsanguinate the limb. The tourniquet was then inflated. Attention was then directed to procedure #1. Open reduction and internal fixation of Lisfranc articulation subluxation fracture. Utilizing fluoroscopy as a guide, a linear incision was made on the lateral aspect of the first metatarsal head at the Lisfranc articulation to the first cuneiform and second metatarsal base. It was kind of just lateral to the base of the first and medial to the base of the second metatarsal, extending distally. Utilizing meticulous dissection, the long extensor tendon was retracted medially. A [place] elevator was then utilized to remove the periosteum and noted to have significant subluxation of the Lisfranc joint. Bone fragments were identified as well as remnants of the intercuneiform ligament and Lisfranc ligament noted as being completely denuded, completely removed from bone. A curette was utilized to free up and remove any bone fragments and displaced ligament, and copiously lavaged and flushed. Utilizing fluoroscopy, a guidewire was then placed percutaneously on the cuneiform and extending across from medial to lateral across to the base of the second metatarsal. A large bone clamp was utilized to close down the diastasis prior to placement of the guidewire. Guidewire was verified for proper placement. Then using AO techniques, a 4.0 headless compression screw, 34 mm in length was utilized. The area was flushed. Attention was then directed to procedure #2. Open reduction and internal fixation of the second metatarsal base fracture. With the hardware, 4-0 screw, in place, fortunate enough to capture the fracture of the proximal base of the second metatarsal with anatomic reduction achieved. The areas were flushed. The incision was closed with 3-0 and 4-0 Polysorb and then skin was reapproximated with 4-0 Surgipro. The percutaneous wound was closed with 4-0 Polysorb. The area was locally anesthetized with the aforementioned local anesthetic. A light compressive dressing was applied as well as a prefabricated Ortho-Glass splint was applied posteriorly with the foot at 90 degrees of lower leg. The patient tolerated procedures well and left the operating room with vital signs stable. It should be noted that the tourniquet was released at 55 minutes with reactive hyperemia and good digital perfusion. While in recovery, written explicit instructions of nonweightbearing at all times. Prognosis is guarded. She will be discharged home in stable condition.
--- NOTE | 2016-12-16 10:26 | DIAGNOSTIC IMAGING REPORT ---
PROCEDURE: XR FOOT 3 VIEWS - LEFT INDICATION: POST-OP- IN PACU TECHNIQUE: Three views. COMPARISON: Foot films dated 12/08/2016 FINDINGS: There is a screw across the medial cuneiform and the base of the second metatarsal. Alignment is anatomic. IMPRESSION: 1. Lisfranc fusion.
[2016-12-16 11:40] VITALS: BP 125/78
== END 2016-12-16 12:14 | disposition home or self-care (01) ==
LOC: SDC SRH 06:12 → SCU SRH 06:13 → SDC SRH 07:30 → OR SRH 12:30 → SDC SRH 12:30
PROVIDERS: Podiatrist
PROC: 0SSL04Z Reposition Left Tarsometatarsal Joint with Internal Fixation Device, Open Approach (ICD-10-PCS; principal; 2016-12-16 07:30)
PROC: 0QSP04Z Reposition Left Metatarsal with Internal Fixation Device, Open Approach (ICD-10-PCS; principal; 2016-12-16 07:30)
DX: S93.322A Subluxation of tarsometatarsal joint of left foot, initial encounter (principal); S92.322A Displaced fracture of second metatarsal bone, left foot, initial encounter for closed fracture; W10.9XXA Fall (on) (from) unspecified stairs and steps, initial encounter